=== PATIENT | male | born 1935 | race Caucasian/White ===

== ENCOUNTER 2016-06-19 08:52 | Day surgery (SDC) | payer OTHER ==
[~2016-06-19 08:52] MED LIST: ASPI325T4 PO; ATOR40TA PO; BUPR150T8 PO; CARV25TA PO; CEFTRIAXONE 1GM IVPB FOR OMNI 50 ML IV ONE; CIPR500T94 PO; FENTANYL PF 100 MCG/2 ML VIAL. IV PRN; HYDR-2666 PO; HYDROMORPHONE 2 MG/ML VIAL. IV PRN; IV RINGERS,LACTATED 1000ML 1,000 ML IV SCH; LIDOCAINE 1% 1 ML SYRINGE. ID PRN; MORPHINE SULFATE 2 MG/ML DISP.SYRIN. IV PRN; MULT1TAB6 PO; OMEG1CAP16 PO; ONDANSETRON PF 4 MG/2 ML VIAL. IV PRN; PANT20TA2 PO; PHEN-373 PO; POTA10TA17 PO; PROCHLORPERAZINE 10 MG/2 ML VIAL. IV PRN; SULF1TAB3 PO; fish
[2016-06-19 09:40] LABS: BASO % 1 % (0-3); EOS % 5 % (0-3); HEMATOCRIT 27.7 % (39.0-53.0); HEMOGLOBIN 9.6 g/dL (13.0-17.5); LYMPH # 1.5 x10^3/uL (1.0-4.8); LYMPH % 53 % (24-48); MEAN CORPUSCULAR HEMOGLOBIN 37 pg (25-35); MEAN CORPUSCULAR HGB CONC 35 g/dL (31-37); MEAN CORPUSCULAR VOLUME 108 fL (79-100); MONO % 12 % (0-9); NEUT % 28 % (31-73); PLATELET COUNT 81 x10^3/uL (140-400); RED BLOOD COUNT 2.58 x10^6/uL (4.30-5.70); RED CELL DISTRIBUTION WIDTH 15.9 % (11.5-14.5); WHITE BLOOD COUNT 2.8 x10^3/uL (4.0-11.0)
[2016-06-19 09:42] LABS: BILIRUBIN,URINE SMALL (NEG); GLUCOSE,URINE NEGATIVE (NEG); NITRITE,URINE NEGATIVE (NEG)
[2016-06-19] MEDS ORDERED: [UNRECOGNIZED DRUG - OTHER] IV ONE (10:00)
[2016-06-19] MEDS ORDERED: CEFTRIAXONE 1 GM IV ONE (10:00)
[2016-06-19 10:17] LABS: PROTEIN,URINE NEGATIVE (NEG-TRACE); RBC,URINE 20-40 /HPF (0-2)
[2016-06-19 10:18] LABS: BACTERIA,URINE FEW /HPF (0-FEW); SQUAMOUS EPITHELIAL CELL,UR FEW /LPF
[2016-06-19] MEDS ORDERED: LIDOCAINE 2% 100 MG/5 ML DISP.SYRIN. ONE (10:41)
[2016-06-19] MEDS ORDERED: FENTANYL PF 100 MCG/2 ML VIAL. ONE (10:41)
[2016-06-19] MEDS ORDERED: DEXAMETHASONE SOD PHOS 20 MG/5 ML VIAL. ONE (10:41)
[2016-06-19] MEDS ORDERED: ONDANSETRON PF 4 MG/2 ML VIAL. ONE (10:41)
[2016-06-19] MEDS ORDERED: PROPOFOL 20 ML IV ONE (10:41)
[2016-06-19] MEDS ORDERED: IOHEXOL 300 MG/ML 50 ML VIAL. ONE (11:38)
[2016-06-19] MEDS ORDERED: EPHEDRINE PF IN SALINE 50 MG/5 ML DISP.SYRIN. IV ONE (11:44)
[2016-06-19] MEDS ORDERED: IOHEXOL 300 MG/ML 50 ML VIAL. IJ ONE (11:59)
[2016-06-19] MEDS ORDERED: GLYCOPYRROLATE 1 MG/5 ML VIAL. ONE (12:00)
[2016-06-19] MEDS ORDERED: FUROSEMIDE 40 MG/4 ML VIAL ONE (12:08)
[2016-06-19] MEDS ORDERED: SEVOFLURANE 61 TO 120 MINUTES. IH ONE (12:22)
[2016-06-19] MEDS ORDERED: PHENYLEPHRINE in 0.9% NACL PF 1 MG/10 ML DISP.SYRIN. IV ONE (12:26)
--- NOTE | 2016-06-19 13:23 | DISCH ---
DISCHARGE INSTRUCTIONS Condition on Discharge Condition on Discharge: Stable Activity After Discharge Activity Instructions for Disc: Activity as tolerated Driving Instructions after Dis: Do not drive today Diet after Discharge Diet after Discharge: Regular Additional Diet Restrictions: drink 6-8 12oz of water/day Wound Incision Care Other wound/incision instructi: expect to see blood in urine with stent Contacting the DRPretty after DC Call your doctor for: Concerns you may have Follow-Up Follow up with: Dr Gutierrez next week to remove stent OLGA GUTIERREZ DO Jun 19, 2016 13:23
--- NOTE | 2016-06-19 13:26 | PDOC ---
BRIEF OPERATIVE NOTE Date: Jun 19, 2016 Pre-Op Diagnosis large distal right ureteral calculus Post-Op Diagnosis same Procedure Performed ureteroscopy holmium laser lithotripsy, stent placement Surgeon Richard Anesthesia Type: General Specimens Obtained stone fragments sent to lab Findings same Complications none Additional Remarks will remove stent in office OLGA GUTIERREZ DO Jun 19, 2016 13:26
[2016-06-19] MEDS ORDERED: PHEN-373 PO (13:32)
[2016-06-19 14:18] VITALS: BP 117/67
--- NOTE | 2016-06-19 17:31 | OP ---
DATE OF SURGERY: 06/19/2016 PREOPERATIVE DIAGNOSIS: Large distal right ureteral calculus. POSTOPERATIVE DIAGNOSIS: Large distal right ureteral calculus. PROCEDURE: Cystoscopy, removal of right ureteral stent, rigid ureteroscopy with holmium laser lithotripsy, stone extraction, placement of indwelling right ureteral stent (4.8 Prydeinig x 24 cm). SURGEON: Olga Gutierrez DO. ANESTHESIA: General. INDICATIONS AND JUDGMENT: This is a 80-year-old male with a history of a very large calculus in the distal right ureter. He previously underwent cystoscopy and stent placement. He was brought to the hospital today to undergo ureteroscopy, holmium laser lithotripsy, and stone extraction. The procedure was explained to the patient. He appeared to understand and was agreeable. DESCRIPTION OF PROCEDURE: The patient was preloaded with IV antibiotics. He was then taken to the operating room and placed on the operating room table in a supine position, given a general anesthetic. He was then placed in a dorsal lithotomy position using Clement stirrups since we do not have a cystoscopy table. 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 With a great deal of care, we positioned him so that I would have enough room to work. Rigid cystoscopy was performed. The distal portion of the right ureteral stent was identified. It was grasped with grasping forceps and removed without difficulty. I then advanced a Nickerson rigid ureteroscope up to the level of stone. The stone was very large. I advanced the holmium laser fiber through the working channel of the ureteroscope and then used the laser to fragment the stone, half of it was fragmented and I removed those fragments. I then repeated the laser procedure and fragmented the other half of the stone and those fragments were removed until all the stone fragments had been removed from the distal right ureter. Some of these were sent for stone analysis. At the conclusion, I placed a 4.8 Prydeinig x 24 cm double-J ureteral stent to protect the ureter from postoperative edema and swelling. The instruments were removed. The patient tolerated the procedure well and was sent to recovery room in satisfactory condition. Plans will be to discharge the patient from the recovery room. He is sent home with a prescription for pain medicine and generic Pyridium. He has antibiotics at home. We will plan to remove his stent in the office next week. OLGA GUTIERREZ DO DR: Akilah JOB#: [id number] / [id number]
== END 2016-06-19 14:52 | disposition home or self-care (01) ==
LOC: SURG 08:52
PROVIDERS: ATTEND Urology
DX: N20.1 Calculus of ureter (principal); K21.9 Gastro-esophageal reflux disease without esophagitis; E78.00 Pure hypercholesterolemia, unspecified; D64.9 Anemia, unspecified; M19.90 Unspecified osteoarthritis, unspecified site; I10 Essential (primary) hypertension; Z90.49 Acquired absence of other specified parts of digestive tract; Z96.642 Presence of left artificial hip joint; Z85.46 Personal history of malignant neoplasm of prostate
CPT/HCPCS: 36415; 52356; 76000; 81001; 85027; 87086; J0690; J1100; J1940; J2370; J2405; J2704; J3010; J3490; Q9967; C1769; C2617

== ENCOUNTER → 2017-02-20 | Day surgery (SDC) | payer OTHER ==
[~2017-02-20] MED LIST changes: -ASPI325T4 PO; +ASPI325T8 PO; -CEFTRIAXONE 1GM IVPB FOR OMNI 50 ML IV ONE; +CLOP75TA57 PO; +COLE625T12 PO; +DIPH1TAB PO; -FENTANYL PF 100 MCG/2 ML VIAL. IV PRN; +FERR-26 PO; -HYDR-2666 PO; +HYDR-2758 PO; -HYDROMORPHONE 2 MG/ML VIAL. IV PRN; +HYDROmorphone 2 MG/ML VIAL IV PRN; +LACT1CAP12 PO; -LIDOCAINE 1% 1 ML SYRINGE. ID PRN; +LIDOCAINE 1% PF 2 ML VIAL. ID PRN; +LIDOCAINE 2% PF Vial for OR 5 ML VIAL. ONE; +MAGN400C PO; +MORPHINE SULFATE 4 MG/ML DISP.SYRIN. IV PRN; -OMEG1CAP16 PO; +OMEG1CAP27 PO; -PHEN-373 PO; +PHEN-444 PO; +PROPOFOL 20 ML IV ONE; +SULF-143 PO; -SULF1TAB3 PO; +fentaNYL PF VIAL 100 MCG/2 ML VIAL IV PRN
--- NOTE | 2017-02-20 08:29 | HP ---
ADMIT DATE: 02/20/2017 REFERRING PHYSICIAN: Jordan Barger MD. HISTORY OF PRESENT ILLNESS: A 81-year-old male with past medical history significant for organic heart disease, status post MD, prostate cancer, iron deficiency anemia, seen with worsening diarrhea and anemia. His energy and appetite has been poor. Last infarct was approximately 3 weeks ago. He did have a colonoscopy approximately 10 years ago which did reveal diverticular disease. At this time, he continues to have loose stools daily. He is on magnesium sulfate, trimethoprim, sulfamethoxazole, question of celiac disease has been raised and upper endoscopy may be pursued today to further assess. PAST MEDICAL HISTORY: History of MD, history of prostate cancer, organic heart disease, hyperlipidemia. ALLERGIES: None. MEDICATIONS: Include aspirin, Lipitor, Wellbutrin, Plavix, Welchol, Lomotil, ferrous sulfate, magnesium, pantoprazole, potassium citrate and Bactrim. FAMILY AND SOCIAL HISTORY: Nonsmoker, nondrinker. PAST SURGICAL HISTORY: Status post cholecystectomy, joint replacement and vasectomy. REVIEW OF SYSTEMS: Per records. PHYSICAL EXAMINATION: GENERAL: Reveals a pale white male who reports mild distress. VITAL SIGNS: Temperature 98.4, pulse 91, respirations 20. HEENT: Normocephalic and atraumatic head. Pupils and extraocular muscles not tested. Sclerae anicteric. NECK: Supple. LUNGS: Clear. CARDIOVASCULAR: Reveals S1, S2 without S3, S4 or appreciable murmur. ABDOMEN: Reveals a soft abdomen, normal bowel sounds, without appreciable hepatosplenomegaly. EXTREMITIES: Reveals no cyanosis, clubbing or edema. IMPRESSION: Anemia with iron deficiency as well as diarrhea. The etiology is to be determined. Differential includes gastric or colon cancer, celiac disease, inflammatory bowel disease, colonic polyps, AVMs, collagenous colitis, C. diff secondary to antibiotics and/or magnesium induced diarrhea; therefore, recommended upper endoscopy, possible biopsy. If this unrevealing, stool studies will be ordered to assess for possible C. diff. In view of the patient's recent myocardial infarction, Cardiology clearance will be required prior to colonoscopy which the patient and I deferred back in August of this year. MANUEL NICE MD DR: ELENI/elias JOB#: [id number] / [id number]
[2017-02-20 08:30] VITALS: BP 106/58
--- NOTE | 2017-02-23 13:20 | PATHOLOGY ---
PATHOLOGY REPORT * * * * * * * * FINAL DIAGNOSIS: Duodenal biopsies: - No significant pathologic abnormalities. COMMENT: Sections of the duodenal biopsy reveal multiple segments of duodenal mucosa. Where best oriented, the mucosal villi appear normal. There are no sprue-like changes or significant inflammatory changes. (JPM:mgr; 02/23/2017) REPORT ELECTRONICALLY SIGNED BY: Jameson Alvarez M.D. DATE/TIME: 02/23/2017 13:19 * * * * * * * * GROSS PATHOLOGY: Received in formalin labeled "Mounika Hidalgo, duodenal BX," are 5 segments of varma soft tissue measuring 1.8 x 0.3 x 0.4 cm in aggregate dimensions and ranging from 0.3 to 0.4 cm in maximum dimension. The specimen is submitted entirely in cassette A1. (TSD; 02/20/2017) INITIAL CPT CODE(S): A; 90660 Professional services performed [place] [facility] [place] [address] Technical services performed by [facility] at [address] [place] [address]. SPECIMEN(S) RECEIVED: A.Duodenal biopsy CLINICAL HISTORY: Diarrhea, anemia; r/o celiac PATIENT: MOUNIKA HIDALGO /AGE: 206/24/1935 (Age: 81) PATIENT #: [id number] ALT CASE #: SPECIMEN COLLECTION DATE: 02/20/2017 SPECIMEN RECEIVED DATE: 02/20/2017 [facility] - [address] [place] [address] - PHONE: [phone] * * * END OF REPORT * * *
== END | disposition home or self-care (01) ==
LOC: ENDOS 06:46
PROVIDERS: ATTEND Internal Medicine Gastroenterology
DX: K29.50 Unspecified chronic gastritis without bleeding (principal); K31.7 Polyp of stomach and duodenum; I25.2 Old myocardial infarction; E78.5 Hyperlipidemia, unspecified; D64.9 Anemia, unspecified; M19.90 Unspecified osteoarthritis, unspecified site; I10 Essential (primary) hypertension; I25.10 Atherosclerotic heart disease of native coronary artery without angina pectoris; Z85.46 Personal history of malignant neoplasm of prostate; Z96.642 Presence of left artificial hip joint; Z95.1 Presence of aortocoronary bypass graft; Z79.899 Other long term (current) drug therapy; Z98.890 Other specified postprocedural states
CPT/HCPCS: 43239; 88305; J2704; J2001